=== PATIENT | female | born 1985 | race Caucasian/White ===

== ENCOUNTER 2016-12-25 15:50 | Outpatient (CLI) | payer BC, OTHER ==
[~2016-12-25] VITALS: Ht 154.9 cm; Wt 66.5 kg
[~2016-12-25 15:50] MED LIST: CHOL400T; DOCO1CAP10; IRON1TAB5; MTR600X PO; PRENTAB26 PO; VITATAB19
[2016-12-25] MEDS ORDERED: LACTATED RINGER'S 1000ML 500 ML IV ONE (16:10)
[2016-12-25] MEDS ORDERED: LACTATED RINGER'S 1000ML 1,000 ML IV SCH (16:10)
[2016-12-25 16:15] VITALS: Ht 154.9 cm; Wt 66.5 kg
[2016-12-25] MEDS ORDERED: NUTR-218 (16:15)
[2016-12-25 16:38] LABS: BASO % 0.1 %; BASO ABS # 0.01 K/uL (0-0.2); COMPLETE YES; EOS % 0.5 %; HEMATOCRIT 36.9 % (37-47); IG% 0.3 %; LYMPH % 35.4 %; LYMPH ABS # 3.42 K/uL (1.2-3.4); MEAN CELL VOLUME 85.8 fL (80-100); MEAN CORPUSCULAR HEMOGLOBIN 29.3 pg (25-34); MEAN CORPUSCULAR HGB CONC 34.1 g/dl (32-36); MEAN PLATELET VOLUME 9.1 fL (7.4-10.4); MONO % 5.1 %; NEUT % 58.6 %; PLATELET COUNT 284 K/uL (130-400); WHITE BLOOD COUNT 9.65 K/uL (4.8-10.8)
[2016-12-25 16:57] LABS: POTASSIUM 3.7 mmol/L (3.5-5.1)
[2016-12-25 18:02] LABS: URINE APPEARANCE CLEAR (CLEAR); URINE BILIRUBIN NEG (NEG); URINE COLOR YELLOW; URINE NITRITE NEG (NEG); URINE PH 7.5 (4.5-7.5); URINE SPECIFIC GRAVITY 1.003 (1.000-1.030); UROBILINOGEN NEG (NEG); ZZUR CULT IF INDIC CLEAN CATCH NO
[2016-12-25 18:04] LABS: MANUAL MICROSCOPIC REQUIRED? NO; REVIEW REQ? NO
--- NOTE | 2016-12-25 18:26 | Discharge Instructions ---
Discharge Instructions Date of Service Dec 25, 2016. Admission Reason for Admission: Prolonged Monitoring Discharge Discharge Diagnosis / Problem: testing Discharge Goals Goal(s): Continuing OB care Activity Recommendations Activity Limitations: as noted below SPECIAL CARE INSTRUCTIONS: Call Doctor if: * Regular contractions every 5 minutes or greater than contractions in one hour. * Bleeding * Water breaks or is leaking * Decreased movement * Fever >100.4 degrees F * Pain not relieved by routine measures or pain medication ordered. FOLLOW UP VISIT: Return to Labor and Delivery on for /call for appointment time . Follow-up Visit with: When: . Current Hospital Diet Patient's current hospital diet: Discharge Diet Recommended Diet: Regular Diet Pending Studies Studies pending at discharge: no Medical Emergencies . Who to Call and When: Medical Emergencies: If at any time you feel your situation is an emergency, please call 911 immediately. . Non-Emergent Contact Non-Emergency issues call your: Specialist . . "Provider Documentation" section prepared by Ruperto Currie. VTE Core Measure Inpt VTE Proph given/why not?: Treatment not indicated
--- NOTE | 2016-12-25 18:38 | Progress Note ---
Progress Note Date of Service Dec 25, 2016. Progress Note Pt is a 31 yo at 39+ weeks who was seen in the office today for routine care. she had NST and JOSE because of gestational age. she would be 40+ weeks after tomorrow. Her course has otherwise been unremarkable. monitoring in the office showed FHR in the low 100's. she was sent to L&D for prolonged monitoring. JOSE done in the office was 17.0 On arrival to L&D, she had a prolonged NST and is now reactive discussed induction with pt. she is scheduled for induction on 01/01/17. she has declined induction any sooner she will RTC for NST and rpeat JOSE 2X next week disch home with instruction including [place] [facility]
[2016-12-29] MEDS ORDERED: MTR600X PO (09:49)
== END 2016-12-25 18:40 | disposition home or self-care (01) ==
LOC: C.OPB 15:50 → C.LD 15:50 → C.OPB 18:40
PROVIDERS: ATTEND Obstetrics & Gynecology
DX: Z34.83 Encounter for supervision of other normal pregnancy, third trimester (principal); Z3A.39 39 weeks gestation of pregnancy

== ENCOUNTER 2016-12-27 15:29 | Inpatient (IN) | payer OTHER ==
[~2016-12-27] VITALS: Ht 154.9 cm; Wt 66.4 kg
[~2016-12-27 15:29] MED LIST changes: -CHOL400T; -DOCO1CAP10; -IRON1TAB5; -MTR600X PO; +NUTR-218; -PRENTAB26 PO; -VITATAB19
[2016-12-27] MEDS ORDERED: LACTATED RINGER'S 1000ML 1,000 ML IV PRN (15:33)
[2016-12-27] MEDS ORDERED: LACTATED RINGER'S 1000ML 1,000 ML IV SCH (15:33)
[2016-12-27] MEDS ORDERED: DINOPROSTONE 10 MG INSERT PV ONE (15:45)
[2016-12-27 16:07] LABS: HEMATOCRIT 36.2 % (37-47); MEAN CELL VOLUME 85.2 fL (80-100); MEAN CORPUSCULAR HEMOGLOBIN 29.4 pg (25-34); MEAN CORPUSCULAR HGB CONC 34.5 g/dl (32-36); MEAN PLATELET VOLUME 9.2 fL (7.4-10.4); PLATELET COUNT 304 K/uL (130-400); RED BLOOD COUNT 4.25 M/uL (4.2-5.4); WHITE BLOOD COUNT 9.52 K/uL (4.8-10.8)
--- NOTE | 2016-12-27 16:37 | Progress Note ---
Progress Note Date of Service Dec 27, 2016. Progress Note Patient is a 31 y/o @ 40.1 weeks was sent over for induction of labor secondary to being post dates and persistent low FHT baseline. Patient has good FM. Denies contractions, LOF or bleeding. Exam: 1-2/50/-3. FHT's category 1 with baseline in the 110's. Irregular contractions. GBS negative. Cervidil placed for cervical ripening. Will augment labor as needed and anticipate .
[2016-12-27 16:52] VITALS: Ht 154.9 cm; Wt 66.4 kg
[2016-12-28] MEDS ORDERED: CALCIUM CARBONATE 500 MG CHEWABLE PO PRN (09:45)
[2016-12-28] MEDS ORDERED: CALCIUM CARBONATE 500 MG CHEWABLE ONE (09:45)
--- NOTE | 2016-12-28 10:21 | Progress Note ---
Progress Note Date of Service Dec 28, 2016. Progress Note cervix /-2 AROM clear fluid FHT Cat 1
[2016-12-28] MEDS ORDERED: OXYTOCIN 30 UNITS/500ML NSS IV ONE (11:53)
--- NOTE | 2016-12-28 11:55 | Progress Note ---
Progress Note Date of Service Dec 28, 2016. Progress Note Cervix /-1 T Cat 1
[2016-12-28] MEDS ORDERED: LACTATED RINGER'S 1000ML 1,000 ML IV SCH (12:35)
--- NOTE | 2016-12-28 12:40 | Vaginal Delivery Summary ---
Vaginal Delivery Summary live male over intact perineum with Apgars 9/9 weight pending. Delayed cord clamping followed by cord blood and spontaneous delivery of intact perineum. No tears. EBL 200 ml. Final sponge and instrument count are correct. Mom and baby stable.
[2016-12-28] MEDS ORDERED: OXYTOCIN 30 UNITS/500ML NSS IV PRN (12:45)
[2016-12-28] MEDS ORDERED: HYDROCORTISONE ACETATE 25 MG SUPP PR PRN (12:45)
[2016-12-28] MEDS ORDERED: SUPERCREAM 0.870 % 15GM JAR EXT PRN (12:45)
[2016-12-28] MEDS ORDERED: LANOLIN OINT EXT PRN ×2 (12:45)
[2016-12-28] MEDS ORDERED: MEASLES, MUMPS & RUBELLA VIRUS VIAL SQ. ONE (12:45)
[2016-12-28] MEDS ORDERED: ACETAMINOPHEN/CODEINE 300/30MG TAB PO PRN ×2 (12:45)
[2016-12-28] MEDS ORDERED: ACETAMINOPHEN 325 MG TAB PO PRN (12:45)
[2016-12-28] MEDS ORDERED: OXYCODONE/ACETAMINOPHEN 5-325 TAB PO PRN (12:45)
[2016-12-28] MEDS ORDERED: BENZOCAINE 20% AER SPR 82.5 GM CAN EXT PRN (12:45)
[2016-12-28] MEDS ORDERED: DIPHTHERIA/TETANUS/PERTUSSIS 0.5 ML SYR/VIAL IM. ONE (12:45)
[2016-12-28] MEDS: IBUPROFEN 600 MG TAB PO PRN ×4 (13:45→21:55)
[2016-12-28 15:30] VITALS: BP 102/63; PULSE 112; TEMP 36.7
[2016-12-28] MEDS: DOCUSATE SODIUM 100 MG CAP PO SCH (19:51)
[2016-12-28 20:00] VITALS: BP 118/76; PULSE 74; TEMP 36.7; O2SAT 98
[2016-12-29 00:05] VITALS: BP 106/71; PULSE 84; TEMP 36.9; O2SAT 98
[2016-12-29 04:05] VITALS: BP 102/69; PULSE 67; TEMP 36.3
[2016-12-29] MEDS: IBUPROFEN 600 MG TAB PO PRN ×2 (04:08→10:52)
[2016-12-29 06:34] LABS: HEMATOCRIT 33.9 % (37-47)
[2016-12-29 08:00] VITALS: BP 130/85; PULSE 80; TEMP 36.8
[2016-12-29] MEDS ORDERED: FERROUS SULFATE 325 MG TAB PO SCH (08:00)
[2016-12-29] MEDS ORDERED: PRENATAL VITAMIN TAB PO SCH (08:00)
[2016-12-29] MEDS: DOCUSATE SODIUM 100 MG CAP PO SCH (08:00)
--- NOTE | 2016-12-29 09:11 | OB/GYN Progress Note ---
[employer] Progress Note Date of Service Dec 29, 2016. Subjective conversation w/ patient, physical exam Ambulation: ambulating normally Voiding: no voiding problems Passing Gas: Yes Diet Tolerance: Regular Diet Lochia: Moderate Feeding Type: Breast Feeding Review of Systems Constitutional: No chills, No fatigue, No fever, No problem reported, No sweats , No weakness, No weight loss Respiratory: No cough, No dyspnea at rest, No dyspnea on exertion, No hemoptysis, No problem reported, No shortness of breath, No sputum, No wheezing Cardiac: No PND, No chest pain, No claudication, No edema, No orthopnea, No palpitations, No problem reported Breast: No breast lump, No breast pain, No change in shape, No nipple discharge , No problem reported, No see HPI Abdomen: No GI bleeding, No constipation, No diarrhea, No nausea, No pain, No problem reported, No vomiting Female : No abnormal vaginal bleeding, No dysuria, No hematuria, No incontinence, No problem reported, No see HPI, No urinary frequency, No vaginal discharge Objective Vital Signs Date Time Temp Pulse Resp B/P Pulse Ox O2 Delivery O2 Flow Rate FiO2 12/29/16 08:00 36.8 80 20 130/85 Room Air 12/29/16 07:45 Room Air 12/29/16 04:05 36.3 67 18 102/69 Room Air 12/29/16 00:05 98 Room Air 12/29/16 00:05 36.9 84 18 106/71 98 Room Air 12/28/16 20:00 36.7 74 18 118/76 98 Room Air 12/28/16 15:30 36.7 112 20 102/63 Physical Exam General Appearance: WELL-APPEARING, WD/WN, NO APPARENT DISTRESS Respiratory/Chest: chest non-tender, lungs clear, normal breath sounds, no respiratory distress, no accessory muscle use Cardiovascular: regular rate, rhythm, no edema, no gallop, no JVD, no murmur Abdomen: normal bowel sounds, non tender, soft, no organomegaly, no pulsatile mass Fundus: Firm Extremities: normal range of motion, non-tender, normal inspection, no pedal edema, no calf tenderness Laboratory Results Last 24 Hours Test 12/29/16 06:10 Hemoglobin 11.6 g/dL Hematocrit 33.9 % Assessment and Plan Post- Day Number: 1 Continue Routine Care: PPD #1 PT DOING WELL D/C HOME WITH INSTRUCTIONS
[2016-12-29] MEDS ORDERED: MTR600X PO (09:49)
--- NOTE | 2016-12-29 09:51 | Discharge Instructions ---
Discharge Instructions Date of Service Dec 29, 2016. Admission Reason for Admission: Decreased Movement Discharge Discharge Diagnosis / Problem: Discharge Goals Goal(s): Routine recovery after delivery Activity Recommendations Activity Limitations: as noted below Lifting Limitations: gradually increase as tolerated Exercise/Sports Limitations: until after follow-up appointment May Resume Sexual Activity: after follow-up appointment ACTIVITY RECOMMENDATIONS: * Gradual return to full activity over the next 2-3 weeks. * No lifting - nothing heavier than baby over the next 2-3 weeks. * Do not engage in vigorous exercise, sexual activity or sports until cleared by your physician. * Do not drive or operate any motorized equipment until cleared by your physician. * You may shower/bathe daily. BREAST CARE: If you are not breast feeding: * Wear a supportive bra 24 hours a day for one to two weeks. * Avoid stimulating your breasts and nipples as much as possible during the first few weeks after delivery. * When taking a shower, have the warm water hit your back, not breasts. * When your breasts feel full, apply ice packs. Usually three to four times a day helps ease the discomfort. * Take a mild pain medication (Tylenol/Motrin) when you are uncomfortable. If breast feeding: * Use breast milk to lubricate nipples. Lansinoh cream may be used for sore nipples. You do not need to remove cream prior to breast feeding. If using a different brand of cream, check the label for directions regarding removal of cream prior to nursing. * Wear a supportive bra. * If having problems with breasts or breast feeding, call a it consultant or your health care provider. EPISIOTOMY CARE: After delivery, if you have an episiotomy (stitches), the following steps will ease discomfort and aid healing. * For the first 24 hours after delivery, place ice packs next to your episiotomy to help reduce swelling. * After the first 24 hour-period, sitz baths, either portable or in the tub, are suggested. A shower with a shower arm sprayed over the episiotomy may be comforting. * [place] care should be done after each voiding and bowel movement. Squirt warm water from a plastic bottle over the perineum (region of the body between the anus and urinary opening) and pat dry. * Use Dermoplast to ease discomfort. Shake container. [place] directly over the episiotomy. * Place a Tucks on a clean sanitary pad next to your episiotomy. OVER THE COUNTER MEDICATION: * For discomfort or pain, you may use Acetaminophen (Tylenol), Ibuprofen (Advil ), or Naproxen (Aleve) following the package directions. * For constipation you may use Colace following the package directions. SPECIAL CARE INSTRUCTIONS: When you are discharged from the hospital, it is important for you to follow the instructions listed below: * During the first week at home, you should be able to care for yourself and your baby. In addition, the usual light household activities are encouraged. * Limit your activities to the way you feel. Do not try to clean the house or move furniture. Be sensible. * If you actively engage in sports and have done so up until the time of your delivery, you may resume these activities as soon as you feel able. This may take up to one month or even longer. Use good judgment. * Continue to take your vitamins for at least six weeks after the of your baby. * Your diet need not be limited unless you were on a special diet before your delivery. Breast-feeding mothers need around 2500 calories per day and at least 64-80 ounces of fluid per day (8 to 10 glasses). * You should eat foods from the four major food groups. Crash diets or fad diets are to be avoided. Eating lean meats, fresh fruits and vegetables, low-fat dairy products, high fiber foods and a regular exercise program, will help you get back to your pre- weight without putting your health at risk. * Constipation is sometimes a problem after delivery. Take a mild laxative as needed. If breast feeding, Milk of Magnesia is acceptable to use. You may use a suppository or Fleets enema if no episiotomy. * A daily shower or tub bath is suggested. Be sure to thoroughly and gently dry the perineum. * A bloody vaginal discharge will usually continue until around four weeks post . A small amount of bleeding may continue for as long as six weeks. Vaginal discharge changes from the bright red bleeding after delivery to pink then brownish and finally yellowish-pink before becoming white and disappearing. * Bleeding may increase with activity. Your first period may come in 4-8 weeks. If you are breast feeding, your period may be delayed even longer. * [place] (sex) can begin whenever both you and your partner feel comfortable and do not have any form of genital infection. It is recommended that you wait until after your return appointment and discuss with your physician. If you have questions, please talk to your health care practitioner. A condom should be used to prevent infection and . * Foreplay, gentle intercourse and lubrication is very important the first several times to prevent pain. A water-based lubricant such as K-Y jelly or Astroglide may be used. * Tampons may be used six weeks after delivery. * Douching should be avoided for 6 weeks after delivery. * If you have RH negative blood and your baby is RH positive, you will receive RHOGAM by injection prior to discharge. The nurse will give you a card to keep with you that has the date and place that you received RHOGAM after delivery. * During your care, you had a Rubella screen done to check for the presence of rubella antibodies in your blood. If your test was negative, you will receive a Rubella vaccine prior to discharge. This vaccine may cause a fever, soreness at the injection site and flu-like symptoms. If these symptoms persist, notify your health care practitioner. is not advised for three months after a Rubella vaccine. There is a higher chance of having a baby with defects if conceived within three months of getting the vaccine. * If you were discharged 24 hours from delivery or before 48 hours: Visiting nurses will come to your home 48 hours after discharge to assess you and your baby. The visiting nurse will meet with you while you are in the hospital to arrange a time and get directions to your home. * Verbalizes understanding of car seat law as reviewed with patient nursing. * Car Seat hand-out given and reviewed with patient by nursing. * Shaken baby information reviewed with patient by nursing. Call you doctor if: * Heavy bleeding (saturating several pads an hour) or passing clots the size of your fist. * A fever >101 degrees F (38.3 degrees C) on two occasions four hours apart and/or chills. * Unusual pain in the pelvic or vaginal areas. * "Baby Blues" lasting longer than two weeks. If you have any questions or concerns, call your health care practitioner at . FOLLOW-UP VISIT: * Please call the office at to schedule a 6 week examination. It is important you keep this appointment. * It is important for you to make arrangements for either yearly or twice yearly check-ups thereafter. . Current Hospital Diet Patient's current hospital diet: Regular OB Diet Discharge Diet Recommended Diet: Regular Diet Pending Studies Studies pending at discharge: no Medical Emergencies . Who to Call and When: Medical Emergencies: If at any time you feel your situation is an emergency, please call 911 immediately. . Non-Emergent Contact Non-Emergency issues call your: Specialist . . "Provider Documentation" section prepared by Ruperto Currie. VTE Core Measure Inpt VTE Proph given/why not?: Treatment not indicated
[2016-12-29 10:57] VITALS: BP 115/83; PULSE 76; TEMP 36.8; O2SAT 98
[2016-12-29 14:25] VITALS: BP_DIAS 83; PULSE 76; TEMP 36.8
[2016-12-29] MEDS ORDERED: BISACODYL 5 MG TABEC PO SCH (20:00)
[2016-12-30] MEDS ORDERED: BISACODYL 10 MG SUPP PR PRN (07:00)
== END 2016-12-29 14:25 | disposition home or self-care (01) | DRG 775 ==
LOC: C.LD 15:29 → C.OPB 15:29 → C.LD 15:35 → C.OPB 15:35 → C.OBG 12-28 15:02
PROVIDERS: ADMIT Obstetrics & Gynecology; ATTEND Obstetrics & Gynecology
PROC: 10E0XZZ Delivery of Products of Conception, External Approach (ICD-10-PCS; principal; 2016-12-28)
PROC: 3E0P7GC Introduction of Other Therapeutic Substance into Female Reproductive, Via Natural or Artificial Opening (ICD-10-PCS; principal; 2016-12-28)
DX: O48.0 Post-term pregnancy (principal); O76 Abnormality in fetal heart rate and rhythm complicating labor and delivery; Z37.0 Single live birth; Z3A.40 40 weeks gestation of pregnancy

== ENCOUNTER → 2017-08-23 | Outpatient (CLI) | payer OTHER ==
[~2017-08-23] MED LIST changes: +MTR600X PO
== END | disposition home or self-care (01) ==
LOC: C.PAPS 14:00
PROVIDERS: ATTEND Physician Assistant
DX: Z01.419 Encounter for gynecological examination (general) (routine) without abnormal findings (principal)

== ENCOUNTER → 2017-08-23 | Outpatient (CLI) | payer OTHER ==
[2017-08-23 14:29] LABS: PREG INTERNAL NEGATIVE QC NEG CLEAR BACKGROUND; PREG INTERNAL POSITIVE QC POS CONTROL LINE
== END | disposition home or self-care (01) ==
LOC: C.LABSPEC 13:38
PROVIDERS: ATTEND Physician Assistant
DX: N91.2 Amenorrhea, unspecified (principal)